=== PATIENT | male | born 1985 | race Caucasian/White ===

== ENCOUNTER 2018-08-30 02:30 | Emergency (ER) | payer SELFPAY ==
[2018-08-30] MEDS ORDERED: chlordiazePOXIDE CAP* 25 MG PO ONE (02:45)
--- NOTE | 2018-08-30 02:51 | ED ---
Complex/Multi-Sys Presentation - HPI Summary HPI Summary: Patient is a 33 y/o M presenting to ED with complaints of alcohol withdrawals, SI, generalized pain and diarrhea. Patient had been to [facility] within the past thirty days. 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 Patient claims that he does not drink when he is working, but when he is not he drinks "a lot". Patient states that in the past week, he has 15-20 drinks per day. He reports multiple previous episodes of alcohol withdrawal, states he has had alcoholic seizures previously. When asked if he is experiencing SI, patient states that, "I want to kill myself every single day". He endorses suicide attempt, states that he attempted to overdose on drugs 4 years ago. He notes recent sleep disturbance and decreased appetite, claiming he has not eaten or slept in several days. PMHx of depression, notes that he stopped taking his anti-depressants recently. On triage, pain is rated 6/10. Nothing is noted to aggravate/alleviate Sx. Home medications and allergies are reviewed. - History Of Current Complaint Chief Complaint: EDMentalHealth Hx Obtained From: Patient Onset/Duration: Still Present Timing: Constant Severity Currently: Moderate - 6/10 Location: Pain At: - diffuse Aggravating Factor(s): nothing Alleviating Factor(s): nothing Associated Signs And Symptoms: Positive: Diarrhea, Other - POSITIVE - ALCOHOL WITHDRAWAL, SI, GENERALIZED PAIN - Allergies/Home Medications Allergies/Adverse Reactions: Allergies Allergy/AdvReac Type Severity Reaction Status Date / Time chlordiazepoxide Allergy Dizziness Verified 09/01/18 14:13 [From Librium] PMH/Surg Hx/FS Hx/Imm Hx Sensory History: Denies: Hx Legally Blind, Hx Deafness Opthamlomology History: Denies: Hx Legally Blind EENT History: Denies: Hx Deafness Psychiatric History: Reports: Hx Depression Infectious Disease History: No Infectious Disease History: Reports: Traveled Outside the US in Last 30 Days - Family History Known Family History: Negative: Seizure Disorder - Social History Alcohol Use: Daily Substance Use Type: Reports: Cocaine Smoking Status (MU): Never Smoked Tobacco Review of Systems Constitutional: Other - POSITIVE - GENERALIZED PAIN, ALCOHOL WITHDRAWAL Positive: Diarrhea Psychological: Other - SI Positive: Depressed All Other Systems Reviewed And Are Negative: Yes Physical Exam - Summary Physical Exam Summary: Appearance: Well-appearing, Well-nourished, lying in bed comfortable Skin: Warm, dry, no obvious rash Eyes: sclera anicteric, no conjunctival pallor ENT: mucous membranes moist Neck: deferred Respiratory: No signs of respiratory distress Cardiovascular: Appears well perfused, pulses are nml Abdomen: deferred Musculoskeletal: Moving all 4 extremities without obvious discomfort Neurological: Awake and alert, mentation is normal, speech is fluent and appropriate Psychiatric: affect is normal, does not appear anxious or depressed Triage Information Reviewed: Yes Vital Signs On Initial Exam: Initial Vitals Temp Pulse Resp BP Pulse Ox 98 F 123 20 156/106 95 08/30/18 02:31 08/30/18 02:31 08/30/18 02:31 08/30/18 02:31 08/30/18 02:31 Vital Signs Reviewed: Yes Diagnostics - Vital Signs Vital Signs Temp Pulse Resp BP Pulse Ox 08/30/18 02:31 98 F 123 20 156/106 95 - Laboratory Result Diagrams: 08/30/18 03:01 08/30/18 03:01 Lab Statement: Any lab studies that have been ordered have been reviewed, and results considered in the medical decision making process. Complex Multi-Symp Course/Dx Course Of Treatment: Patient is a 33 y/o M presenting to ED with complaints of alcohol withdrawals, SI, generalized pain and diarrhea. Patient had been to [facility] within the past thirty days. 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 Patient claims that he does not drink when he is working, but when he is not he drinks "a lot". Patient states that in the past week, he has 15-20 drinks per day. He reports multiple previous episodes of alcohol withdrawal, states he has had alcoholic seizures previously. When asked if he is experiencing SI, patient states that, "I want to kill myself every single day". He endorses suicide attempt, states that he attempted to overdose on drugs 4 years ago. He notes recent sleep disturbance and decreased appetite, claiming he has not eaten or slept in several days. PMHx of depression, notes that he stopped taking his anti -depressants recently. Physical exam is unremarkable. Labs showed MCV 98, MCH 34, anion gap 12, BUN/creatinine ratio 7.1, glucose 109, AST 44. Tox screen showed serum alcohol 393. During ED course, patient received Ativan 2 mg PO ED ONCE ONE. Patient is signed out to Dr. Leon pending sobriety, MHE and disposition of this patient. - Diagnoses Provider Diagnoses: Alcohol intoxication Discharge - Sign-Out/Discharge Documenting (check all that apply): Sign-Out Patient Signing out patient TO: Richa Leon Patient Received Moderate/Deep Sedation with Procedure: No - Discharge Plan Condition: Stable Disposition: HOME Patient Education Materials: Abuse of Alcohol (ED), Alcohol Withdrawal (ED) Referrals: ALCOHOLICS ANONYMOUS [Outside] [facility] [Outside] [facility] [Outside] [facility] [Outside] - 1 Day - Billing Disposition and Condition Condition: STABLE Disposition: Home - Attestation Statements Document Initiated by Chaseibe: Yes Documenting Scribe: DIANE FOSTER Provider For Whom Vaishali is Documenting (Include Credential): KANWAL BARLOW MD Scribe Attestation: DIANE Hahn, scribed for KANWAL BARLOW MD on 09/04/18 at 0342. Scribe Documentation Reviewed: Yes Provider Attestation: The documentation as recorded by the DIANE martiens accurately reflects the service I personally performed and the decisions made by me, KANWAL BARLOW MD Status of Scribe Document: Viewed
[2018-08-30] MEDS ORDERED: LORazepam TAB(*) 1 MG PO ONE ×3 (02:58→20:48)
[2018-08-30 03:12] LABS: ABS Basophils 0 10^3/ul (0-0.2); ABS Eosinophils 0 10^3/ul (0-0.6); ABS Lymphocytes 1.9 10^3/ul (1.0-4.8); ABS Monocytes 0.5 10^3/ul (0-0.8); ABS Neutrophils 2.4 10^3/ul (1.5-7.7); ABS Nucleated RBC 0 10^3/ul; Eosinophil % 0.3 %; Hematocrit 45 % (36-46); Hemoglobin 15.4 g/dL (14.0-18.0); Lymphocyte % 39.3 %; Mean Corpuscular HGB Conc 34 g/dL (31-36); Mean Corpuscular Hemoglobin 34 pg (27-31); Mean Corpuscular Volume 98 fL (80-94); Mean Platelet Volume 8.2 fL (7.4-10.4); Nucleated Red Blood Cells % 0.1; Platelet Count 179 10^3/uL (150-450); Red Blood Count 4.59 10^6 /uL (4.18-5.48); Red Cell Distribution Width 15 % (10.5-15); White Blood Count 4.8 10^3/uL (3.5-10.8)
[2018-08-30 03:28] LABS: ALT 39 U/L (7-52); AST 44 U/L (13-39); Albumin 4.4 g/dL (3.2-5.2); Albumin/Globulin Ratio 1.8 (1-3); Alkaline Phosphatase 87 U/L (34-104); Anion Gap 12 mmol/L (2-11); BUN/Creatinine Ratio 7.1 (8-20); Blood Urea Nitrogen 6 mg/dL (6-24); CO2 Carbon Dioxide 26 mmol/L (22-32); Calcium 8.8 mg/dL (8.6-10.3); Chloride 106 mmol/L (101-111); EGFR African American 124.9 (>60); EGFR Non-African American 103.2 (>60); Globulin 2.5 g/dL (2-4); Glucose 109 mg/dL (70-100); Potassium 3.5 mmol/L (3.5-5.0); Sodium 144 mmol/L (135-145); Total Protein 6.9 g/dL (6.4-8.9)
[2018-08-30 03:41] LABS: Acetaminophen < 15 mcg/mL; Alcohol 393 mg/dL (<10); Salicylate < 2.50 mg/dL (<30)
[2018-08-30 03:56] LABS: TSH (Thyroid Stimulating Horm) 0.81 mcIU/mL (0.34-5.60)
--- NOTE | 2018-08-30 08:00 | ED ---
Progress - Progress Note Progress Note: Pt is a 33 y/o F signed out from Dr. Coburn at 0700 on 08/30/18 pending sobriety and MHE. Pt slept through most of the day shift. Had no indication of alcohol withdrawal. VS reviewed. When awake pt denied SI/HI, was calm and cooperative. Alcohol level was re-drawn at 1453 and result 158, still too high for MHE. Estimated time for sober MHE in 2 hours. Home Medications Medication Instructions Recorded Confirmed Type NK [No Home Medications Reported] 08/30/18 08/30/18 History Re-Evaluation - Re-Evaluation 1st re-eval Re-Evaluation Time: 18:33 Change: Unchanged Comment: I spoke with the pt about his current status. He states he feels like he's in alcohol withdrawal and has been figuring out what medications work for him due to adverse reactions in the past. Pt states he has chlordiazepoxide in his pocket, but he doesn't like the way it makes him feel. Presently, the pt denies SI/HI, stating "I like life, I want to keep living it." He also denies previous hx of suicide attempts, and states he has been in rehab in the past. He is originally from [place], [place]. He denies fhx of suicide, or personal hx of surgery. Pt's BP is stable, slightly elevated. Pt's pulse also stable. Pt is alert, no tremulous. No evidence of tremors or seizures. Mental health staff are waiting to contact pt's friend for collateral information. Course/Dx - Course Course Of Treatment: Pt is a 33 y/o F signed out from Dr. Coburn at 0700 on 08/30 pending sobriety and MHE. Per M in the ED [facility], the pt is shakey and afraid he will withdraw. BP unchanged. Pulse 94. Pt given Ativan 2mg. M states he will be cleared for MHE at 1730. No repeat bloodwork needed. I spoke with the pt about his current status. He states he feels like he's in alcohol withdrawal and has been figuring out what medications work for him due to adverse reactions in the past. Presently, the pt denies SI/HI, stating "I like life, I want to keep living it." He also denies previous hx of suicide attempts , and states he has been in rehab in the past. He is originally from [place], [place]. He denies fhx of suicide, or personal hx of surgery. I recommended the pt receive treatment at [facility] or another rehabilitation center. I will be signing out the pt to Dr. Emmanuel at 1900 on 08/30/18 pending mental health disposition. - Diagnoses Provider Diagnoses: Alcohol intoxication Discharge - Sign-Out/Discharge Documenting (check all that apply): Sign-Out Patient, Receiving Sign-Out Signing out patient TO: Inocencio Emmanuel - 189908/30/18 Receiving patient FROM: Davin Coburn - 69908/29/18 Patient Received Moderate/Deep Sedation with Procedure: No - Discharge Plan Condition: Stable Disposition: HOME Patient Education Materials: Abuse of Alcohol (ED), Alcohol Withdrawal (ED) Referrals: ALCOHOLICS ANONYMOUS [Outside] ALCOHOL DRUG [facility] [Outside] [facility] [Outside] [facility] [Outside] - 1 Day - Billing Disposition and Condition Condition: STABLE Disposition: Home - Attestation Statements Document Initiated by Chaseibe: Yes Documenting Scribe: Rebecca Kimball Provider For Whom Vaishali is Documenting (Include Credential): Dr. Richa Leon MD. Scribe Attestation: Rebecca Hahn scribed for Dr. Richa Leon MD. on 08/30/18 at 2203. Scribe Documentation Reviewed: Yes Provider Attestation: The documentation as recorded by the chaseibeRebecca accurately reflects the service I personally performed and the decisions made by , Dr. Richa Leon MD. Status of Scribe Document: Viewed
[2018-08-30 17:12] LABS: Urine Appearance Cloudy; Urine Bilirubin Negative (Negative); Urine Blood Negative (Negative); Urine Color Yellow; Urine Glucose Negative (Negative); Urine Ketones Trace (Negative); Urine Nitrite Negative (Negative); Urine Protein Negative (Negative); Urine Specific Gravity 1.014 (1.010-1.030); Urine Urobilinogen Negative (Negative)
[2018-08-30 17:23] LABS: Urine Benzodiazepine Screen Presumptive Positive (None Detect); Urine Opiates Screen None Detected (None Detect)
[2018-08-30] MEDS ORDERED: Ondansetron ODT TAB* 4 MG PO ONE (18:55)
--- NOTE | 2018-08-30 19:14 | ED ---
Progress - Progress Note Progress Note: Patient signed out from Dr. Leon at 19:00 awaiting disposition. - Consult/PCP Time Called: 17:18 Re-Evaluation - Re-Evaluation 1st re-eval Re-Evaluation Time: 18:33 Change: Unchanged Comment: I spoke with the pt about his current status. He states he feels like he's in alcohol withdrawal and has been figuring out what medications work for him due to adverse reactions in the past. Presently, the pt denies SI/HI, stating "I like life, I want to keep living it." He also denies previous hx of suicide attempts, and states he has been in rehab in the past. He is originally from [place], [place]. He denies fhx of suicide, or personal hx of surgery. Course/Dx - Course Course Of Treatment: I spoke with the pt about his current status. He states he feels like he's in alcohol withdrawal and has been figuring out what medications work for him due to adverse reactions in the past. Presently, the pt denies SI/HI, stating "I like life, I want to keep living it." He also denies previous hx of suicide attempts, and states he has been in rehab in the past. He is originally from [place], [place]. He denies fhx of suicide, or personal hx of surgery.Patient will be discharged by mental health services and will be refered for out patient services. - Diagnoses Provider Diagnoses: Alcohol intoxication, Suicidal ideation Discharge - Sign-Out/Discharge Documenting (check all that apply): Patient Departure - discharge - Discharge Plan Condition: Stable Patient Education Materials: Abuse of Alcohol (ED), Alcohol Withdrawal (ED) Referrals: ALCOHOLICS ANONYMOUS [Outside] AL[facility]OL DRUG [facility] [Outside] [facility] [Outside] [facility] [Outside] - 1 Day - Attestation Statements Document Initiated by Scribe: Yes Documenting Scribe: Sheri aSntos Provider For Whom Scribe is Documenting (Include Credential): Inocencio Emmanuel MD Scribe Attestation: Sheri Hahn, scribed for Inocencio Emmanuel MD on 08/30/18 at 2042. Status of Scribe Document: Ready
[2018-08-30 21:04] VITALS: BP 149/89
== END 2018-08-30 21:00 | disposition home or self-care (01) ==
LOC: ED 02:30
DX: F10.129 Alcohol abuse with intoxication, unspecified (principal); R45.851 Suicidal ideations; F32.9 Major depressive disorder, single episode, unspecified; Y90.8 Blood alcohol level of 240 mg/100 ml or more
CPT/HCPCS: 36415; 80053; 80307; 80320; 80329; 81003; 84443; 85025; 99284; A9270-GY; G0480

== ENCOUNTER 2018-09-01 13:58 | Observation (INO) | payer MEDICAID ==
--- NOTE | 2018-09-01 15:23 | ED ---
Substance Abuse/Use - HPI Summary HPI Summary: Pt is a 33 y/o M presenting to the ED with a chief complaint of alcohol withdrawal. The pt historically has issues with binge drinking, and was in the ED very recently. He was sent home with instructions to f/u at one of the outpatient facilities, but none of them take the insurance that the pt has, so he started drinking again. He also states he cannot get the medication that usually helps him through the withdrawal. Pt c/o tremors and heartburn. - History Of Current Complaint Chief Complaint: EDSubstanceAbuse Stated Complaint: ALCOHOL WITHDRAWAL PER FRIEND Time Seen by Provider: 09/01/18 15:07 Hx Obtained From: Patient Onset/Duration of Drug/ETOH Abuse: Increased Since: - being d/c'ed a couple of days ago Timing Of Abuse: Intermittent, Binge Use Severity Initially: Moderate Severity Currently: Moderate Character: Anxious Aggravating Factor(s): Nothing Alleviating Factor(s): Nothing Associated Signs And Symptoms: Tremulous, Other: - heartburn - Allergies/Home Medications Allergies/Adverse Reactions: Allergies Allergy/AdvReac Type Severity Reaction Status Date / Time chlordiazepoxide Allergy Dizziness Verified 09/01/18 14:13 [From Librium] PMH/Surg Hx/FS Hx/Imm Hx Previously Healthy: No Sensory History: Denies: Hx Legally Blind, Hx Deafness Opthamlomology History: Denies: Hx Legally Blind Psychiatric History: Reports: Hx Depression Denies: Hx Eating Disorder, Hx of Violent Episodes Against Others Infectious Disease History: No Infectious Disease History: Denies: Traveled Outside the US in Last 30 Days - Family History Known Family History: Negative: Seizure Disorder - Social History Alcohol Use: Daily Alcohol Amount: 12-40 drinks a day during a binge Hx Substance Use: Yes Substance Use Type: Reports: Cocaine Substance Use Comment - Amount & Last Used: a week and a half ago Hx Tobacco Use: Yes Smoking Status (MU): Current Some Day Smoker Review of Systems Positive: Other - heartburn Positive: Other - tremors All Other Systems Reviewed And Are Negative: Yes Physical Exam - Summary Physical Exam Summary: Appearance: The patient is well-nourished in no acute distress and in no acute pain. Skin: The skin is warm and dry and skin color reflects adequate perfusion. HEENT: The head is normocephalic and atraumatic. The pupils are equal and reactive. The conjunctivae are clear and without drainage. Nares are patent and without drainage. Mouth reveals moist mucous membranes and the throat is without erythema and exudate. The external ears are intact. The ear canals are patent and without drainage. The tympanic membranes are intact. Neck: The neck is supple with full range of motion and non-tender. There are no carotid bruits. There is no neck vein distension. Respiratory: Chest is non-tender. Lungs are clear to auscultation and breath sounds are symmetrical and equal. Cardiovascular: Heart is regular rate and rhythm. There is no murmur or rub auscultated. There is no peripheral edema and pulses are symmetrical and equal. Abdomen: The abdomen is soft and non-tender. There are normal bowel sounds heard in all four quadrants and there is no organomegaly palpated. Musculoskeletal: There is no back tenderness noted. Extremities are non-tender with full range of motion. There is good capillary refill. There is no peripheral edema or calf tenderness elicited. Neurological: Patient is alert and oriented to person, place and time. The patient has symmetrical motor strength in all four extremities. Cranial nerves are grossly intact. Deep tendon reflexes are symmetrical and equal in all four extremities. Psychiatric: The patient has an appropriate affect and does not exhibit any anxiety or depression. Triage Information Reviewed: Yes Vital Signs On Initial Exam: Initial Vitals Temp Pulse Resp BP Pulse Ox 98.2 F 91 20 160/113 98 09/01/18 14:06 09/01/18 14:06 09/01/18 14:06 09/01/18 14:06 09/01/18 14:06 Vital Signs Reviewed: Yes Diagnostics - Vital Signs Vital Signs Temp Pulse Resp BP Pulse Ox 09/01/18 14:06 98.2 F 91 20 160/113 98 - Laboratory Result Diagrams: 09/01/18 16:31 09/01/18 16:31 Lab Statement: Any lab studies that have been ordered have been reviewed, and results considered in the medical decision making process. Course/Dx - Course Course Of Treatment: Mr. Young has been trying to stop drinking alcohol on his own and has gotten very shaky. He is staying with a friend here in town and has been sneaking alcohol and essentially hasn't gotten any sleep for several nights. He comes in tremulous and slightly hypertensive. I tried to get him set up with [facility] during their open access tomorrow. They were willing to see him and I was going to give him some Ativan to bridge him over but he and the friend is staying with feel that he meets unsafe going home. I asked the hospitalist to evaluate him for admission. - Diagnoses Provider Diagnoses: Alcohol withdrawal Discharge - Sign-Out/Discharge Documenting (check all that apply): Patient Departure Patient Received Moderate/Deep Sedation with Procedure: No - Discharge Plan Condition: Stable Disposition: ADMITTED TO [facility] Referrals: No Primary Care Phys,NOPCP [Primary Care Provider] - - Billing Disposition and Condition Condition: STABLE Disposition: Admitted to [facility] - Attestation Statements Document Initiated by Scribe: Yes Documenting Scribe: Rebecca Kimball Provider For Whom Vaishali is Documenting (Include Credential): Davin Grant MD. Scribe Attestation: IRebecca, scribed for Davin Grant MD. on 09/01/18 at 1822. Scribe Documentation Reviewed: Yes Provider Attestation: The documentation as recorded by the scribe, Rebecca Kimball accurately reflects the service I personally performed and the decisions made by me, Davin Grant MD. Status of Scribe Document: Viewed
[2018-09-01] MEDS ORDERED: LORazepam TAB(*) 1 MG PO ONE ×2 (15:28→16:47)
[2018-09-01 16:42] LABS: ABS Basophils 0 10^3/ul (0-0.2); ABS Eosinophils 0 10^3/ul (0-0.6); ABS Lymphocytes 0.7 10^3/ul (1.0-4.8); ABS Monocytes 0.6 10^3/ul (0-0.8); ABS Neutrophils 2.9 10^3/ul (1.5-7.7); ABS Nucleated RBC 0 10^3/ul; Eosinophil % 0.6 %; Hematocrit 43 % (36-46); Hemoglobin 14.8 g/dL (14.0-18.0); Lymphocyte % 16.4 %; Mean Corpuscular HGB Conc 34 g/dL (31-36); Mean Corpuscular Hemoglobin 34 pg (27-31); Mean Corpuscular Volume 99 fL (80-94); Mean Platelet Volume 8.4 fL (7.4-10.4); Nucleated Red Blood Cells % 0.2; Platelet Count 146 10^3/uL (150-450); Red Cell Distribution Width 15 % (10.5-15); White Blood Count 4.3 10^3/uL (3.5-10.8)
[2018-09-01 17:00] LABS: ALT 34 U/L (7-52); AST 25 U/L (13-39); Albumin 4.4 g/dL (3.2-5.2); Albumin/Globulin Ratio 1.7 (1-3); Alkaline Phosphatase 80 U/L (34-104); Anion Gap 6 mmol/L (2-11); BUN/Creatinine Ratio 6.2 (8-20); Blood Urea Nitrogen 5 mg/dL (6-24); CO2 Carbon Dioxide 27 mmol/L (22-32); Calcium 9.2 mg/dL (8.6-10.3); Chloride 104 mmol/L (101-111); EGFR Non-African American 109.1 (>60); Globulin 2.6 g/dL (2-4); Glucose 103 mg/dL (70-100); Potassium 4.5 mmol/L (3.5-5.0); Sodium 137 mmol/L (135-145)
[2018-09-01 17:02] LABS: Urine Appearance Clear; Urine Bilirubin Negative (Negative); Urine Blood Negative (Negative); Urine Color Yellow; Urine Glucose Negative (Negative); Urine Ketones Negative (Negative); Urine Nitrite Negative (Negative); Urine Protein Negative (Negative); Urine Specific Gravity 1.008 (1.010-1.030); Urine Urobilinogen Negative (Negative)
[2018-09-01 17:03] LABS: Urine Benzodiazepine Screen Presumptive Positive (None Detect); Urine Opiates Screen None Detected (None Detect)
[2018-09-01 17:20] LABS: Acetaminophen < 15 mcg/mL; Alcohol < 10 mg/dL (<10); Salicylate < 2.50 mg/dL (<30)
[2018-09-01 17:35] LABS: TSH (Thyroid Stimulating Horm) 0.98 mcIU/mL (0.34-5.60)
[2018-09-01] MEDS ORDERED: Acetaminophen TAB* 325 MG PO PRN (18:57)
[2018-09-01] MEDS ORDERED: Thiamine IV* 100 MG/ML 2 ML VIAL IM ONE (18:57)
[2018-09-01] MEDS ORDERED: Ondansetron INJ* 2 MG/ML VIAL IV PRN (19:02)
[2018-09-01] MEDS ORDERED: Lorazepam PYXIS KEY PRN (19:04)
[2018-09-01] MEDS: LORazepam INJ* 2 MG/ML 1 ML VIAL IV PUSH SCH (20:04)
--- NOTE | 2018-09-01 21:07 | HP ---
ADMISSION HISTORY AND PHYSICAL: DATE OF ADMISSION: 09/01/18 PRIMARY CARE PROVIDER: Dr. Moreau in [place], [place]. HEALTHCARE PROXY: He identifies as his friend Burton valentin in [place]. CODE STATUS: Full. SOURCE OF INFORMATION: History obtained from interview with the patient. HISTORY OF PRESENT ILLNESS: This is a 33-year-old man with past medical history including alcohol abuse, depression and PTSD, who works as a sports reporter, has been out of this country in [place], where he ran out of his Zoloft approximately 4 weeks prior to presentation back to [place], [place] approximately 1-1/2 weeks ago. After being sober for about 5 months, started to drink heavily up to 40 beers per day. He already wanted to taper, he was able to taper down to 12 beers, however, started vacillating and drank much more heavily again. He spent some time in [place], again where he was drinking pretty heavily, and then a friend locally flew him to [place] approximately 2 or 3 days prior to presentation. He has already experienced 1 to 2 day admission in [place] after presenting back to the [facility] and he has had an ED visit at this institution prior to presentation [facility]. He was discharged from that ED visit with referral to rehab; however, his Medicaid from [place] was unable to be utilized and could not gain access to rehab. His last drank was 8 p.m. night prior to presentation. He denies any history of intubation or seizures. Previous hospital stays usually last 1 to 2 days. In the emergency room, there was a concern for suicidal ideation. The patient denies vehemently any suicidal ideation but does indicate that he is seeing "many horrible things" and then it makes people think about . He further elaborates that he would not kill himself, has no intention of hurting himself, has no plan, and states how infinitely interesting life is, as a protective factor. In the emergency room, he was noted to have nausea and vomiting 1 time when asleep. He was given a referral to alcohol and drug rehab in [place], whom he has contacted in the emergency room, who he indicated was expecting him in the morning. PAST MEDICAL HISTORY: Includes alcohol abuse, depression, PTSD. MEDICATIONS: Zoloft 50 mg, which he stopped taking a month ago. ALLERGIES: LIBRIUM, which makes him feel weird and causes nausea. FAMILY HISTORY: His grandfather on both sides had a history of alcohol abuse. SOCIAL HISTORY: Sporadic tobacco, does imbibe cigarettes. Cocaine once recently, however, never prior. Alcohol heavily. REVIEW OF SYSTEMS: As per HPI including nausea, anxiety, tremulousness, mild diaphoresis. Otherwise, all other systems reviewed and negative. PHYSICAL EXAMINATION GENERAL: Thin male, appears stated age, sitting up in bed, interactive, in no apparent distress. HEENT: Oropharynx is clear. Dry mucous membranes. Sclerae anicteric. LUNGS: Clear to auscultation. CV: Regular rate and rhythm. ABDOMEN: Soft, nontender, nondistended. EXTREMITIES: Warm. He has tremors in his hands and extended out. NEUROLOGIC: No tongue fasciculations. He is alert and oriented x3. His cranial nerves II through XII are intact. LABORATORY DATA: BUN 5, creatinine 0.81. Total bili 1.1, AST 25, ALT 34. Toxicology is positive for Ativan, which the patient notes his friend gave him and also received from the emergency room. DIAGNOSTIC STUDIES/LAB DATA: No data reviewed. ASSESSMENT AND PLAN: This is a 33-year-old man with past medical history of alcoholism, presenting with alcohol withdrawal. 1. Alcohol withdrawal. Placed on [place] protocol including Ativan IV, folic acid , thiamine as well as seizure precautions. Plan a referral for rehab once stable and no longer needing inpatient hospital stay. 2. Suicidal ideations described by RN. He vehemently denies suicidal ideation at this time. We will readdress in the morning. I do not think he needs one-to -one monitoring overnight after my discussion with the patient who does not have an active plan, has never had an active plan and denies active suicidal ideation. 3. Depression. Discussed restarting Zoloft. The patient declined at this time but is willing to re-discuss in the morning. 4. DVT prophylaxis. Low risk. Ambulate, ad zachary. [id number]/[facility] #: [id number] [facility]
[2018-09-02] MEDS: LORazepam INJ* 2 MG/ML 1 ML VIAL IV PUSH SCH ×3 (01:58→22:33)
[2018-09-02] MEDS: Folic Acid TAB* 1 MG PO SCH (09:02)
[2018-09-02] MEDS: Multivitamins/Minerals TAB PO SCH (09:02)
[2018-09-02] MEDS: Thiamine TAB* 100 MG TAB PO SCH (09:02)
--- NOTE | 2018-09-02 18:06 | PN ---
Subjective Date of Service: 09/02/18 Interval History: Still anxious and tremulous still requiring ativan throughout the day Objective Active Medications: Folic Acid (Folvite Tab*) 1 mg PO DAILY [facility] Last Admin: 09/02/18 09:02 Dose: 1 mg Lorazepam (Ativan Inj*) 0 - 3 mg IV PUSH .PER [facility] PROTOCOL [facility]; Protocol Last Admin: 09/02/18 15:20 Dose: 1 mg Miscellaneous (Ativan Pyxis Oliva) 1 ea N/A .PYXIS OILVA PRN PRN Reason: PER PROTOCOL Multivitamins/Minerals (Theragran/Minerals Tab*) 1 tab PO DAILY [facility] Last Admin: 09/02/18 09:02 Dose: 1 tab Ondansetron HCl (Zofran Inj*) 4 mg IV Q4H PRN PRN Reason: NAUSEA/VOMITING Thiamine HCl (Vitamin B-1 Tab*) 100 mg PO DAILY [facility] Last Admin: 09/02/18 09:02 Dose: 100 mg Vital Signs - 8 hr 09/02/18 09/02/18 09/02/18 10:10 12:02 13:54 Temperature 97.6 F 98.0 F 97.0 F Pulse Rate 71 74 75 Respiratory 16 17 16 Rate Blood Pressure 141/83 116/72 128/85 (mmHg) O2 Sat by Pulse 98 98 98 Oximetry 09/02/18 09/02/18 09/02/18 15:20 16:12 16:24 Temperature 97.8 F Pulse Rate 78 Respiratory 16 16 16 Rate Blood Pressure 130/81 (mmHg) O2 Sat by Pulse 99 Oximetry Oxygen Devices in Use Now: None Appearance: tremulous, NAD Eyes: No Scleral Icterus Ears/Nose/Mouth/Throat: NL Teeth, Lips, Gums, Clear Oropharnyx Neck: NL Appearance and Movements; NL JVP, Trachea Midline Respiratory: Symmetrical Chest Expansion and Respiratory Effort, Clear to Auscultation Cardiovascular: NL Sounds; No Murmurs; No JVD, RRR Abdominal: NL Sounds; No Tenderness; No Distention, No Hepatosplenomegaly Lymphatic: No Cervical Adenopathy Neurological: Alert and Oriented x 3, - - tremor with arms outstretched, no tongue fascicullations Result Diagrams: 09/01/18 16:31 09/01/18 16:31 Assess/Plan/Problems-Billing Assessment: 33 yo M h/o depression/PTSD etoh abuse presenting with etoh withdrawal - Patient Problems (1) Alcohol withdrawal Comment: WAM protocol May be able to go to drug and alcohol counsil tomorrow if ready (2) Depression Comment: denies SI, there was concern about suicidal ideation in ED but has been adamant about desire to live with this author declines to restart zoloft - would like to discuss with his doc in [place] (3) DVT prophylaxis Comment: low risk, ambulate ad zachary
[2018-09-03] MEDS: LORazepam INJ* 2 MG/ML 1 ML VIAL IV PUSH SCH (00:55)
[2018-09-03 08:36] VITALS: BP 101/58
[2018-09-03] MEDS: Multivitamins/Minerals TAB PO SCH (09:25)
[2018-09-03] MEDS: Thiamine TAB* 100 MG TAB PO SCH (09:25)
[2018-09-03] MEDS: Folic Acid TAB* 1 MG PO SCH (09:25)
--- NOTE | 2018-09-03 11:03 | DS ---
CC: [facility] DISCHARGE SUMMARY: DATE OF ADMISSION: 09/01/18 DATE OF DISCHARGE: 09/03/18 DISPOSITION ON DISCHARGE: Home with a friend locally, in [place]. CONDITION ON DISCHARGE: Improved and good. PRIMARY DIAGNOSIS: Alcohol withdrawal. MEDICATIONS AT DISCHARGE: 1. Lorazepam 1 mg every 6 hours as needed for alcohol withdrawal, dispensed 12 tabs. 2. Zofran ODT 4 mg every 6 hours a needed for nausea. PERTINENT LABORATORY DATA: None. HISTORY OF PRESENT ILLNESS AND HOSPITAL COURSE: This 33-year-old man with a past medical history of alcohol withdrawal as well as depression and PTSD, presented to the hospital in alcohol withdrawal after trying to abstain from alcohol. He has had several hospital stays for alcohol withdrawal over the last several weeks, his last was in [place], [place]. He traveled to [place] to reside with a friend in order to attempt to abstain from alcohol. He received 3 mg of Ativan in the last 24 hours, last dose was 8 hours prior to this discharge. His last drink was at 08/31/18. He feels capable of managing his continued withdrawal with a little amount of p.o. Ativan and has done so in the past. He is also interested in following with the [facility] in [place] for further discussions regarding rehab. He is only interested in rehab depending on particular circumstances and would not like a referral at this time to other locations other than [facility]. We did discuss depression and PTSD, he is not interested in starting medication now and is not interested in restarting his Zoloft, which had been discontinued after he ran out while he was in the [place]. Overall, he did quite well during the hospital stay. Never had changes in mental status, always pleasant, interactive , and goal directed; never scored very high on WAM, but did require dosing throughout the last several days to achieve improvement today. There were no complications during the course of hospital stay. At followup please; 1. Referred to rehab as appropriate in discussion with patient. 2. No other specific labs or vitals that need followup. Reasons to return to the hospital including but not limited to recurrent or worsening symptoms including tremulousness, anxiety, nausea, vomiting, lightheadedness, loss of consciousness, chest pain, shortness of breath, seizures, inability to obtain or tolerating medications were discussed with the patient and he acknowledged understanding. TIME SPENT: Greater than 45 minutes was spent on the discharge of this patient , greater than half was spent [id number] with the patient. [id number]/[facility] #: [id number] AKILAH
== END 2018-09-03 12:00 | disposition home or self-care (01) ==
LOC: ED 13:58 → MED 19:02
PROVIDERS: ADMIT Internal Medicine; ATTEND Internal Medicine
DX: F10.239 Alcohol dependence with withdrawal, unspecified (principal); F43.10 Post-traumatic stress disorder, unspecified; F32.9 Major depressive disorder, single episode, unspecified; Z72.0 Tobacco use; R12 Heartburn
CPT/HCPCS: 36415; 80053; 80307; 80320; 80329; 81003; 84443; 85025; 96372; 96374; 96375; 96376; 99285; 99406; A9270-GY; G0378; G0480; J2060; J2405; J3411